=== PATIENT | male | born 1985 | race Caucasian/White ===

== ENCOUNTER 2016-08-08 08:13 | Outpatient (RCR) | payer BC ==
[~2016-08-08 08:13] MED LIST: AMOX-355 PO; HYDR-2997 PO; SULF1TAB38 PO
== END 2016-11-06 | disposition home or self-care (01) ==
LOC: RAD 08:13
PROVIDERS: ATTEND Urology
DX: I86.1 Scrotal varices (principal)
CPT/HCPCS: 89320

== ENCOUNTER → 2016-12-28 | Outpatient (CLI) | payer BC | LOC: LAB 08:05 | PROVIDERS: ATTEND Urology | DX: I86.1 Scrotal varices (principal); N46.11 Organic oligospermia | CPT/HCPCS: 89320 ==